=== PATIENT | male | born 1985 | race African-American/Black ===

== ENCOUNTER → 2019-12-17 | Day surgery (SDC) | payer BC ==
[~2019-12-17] MED LIST: FENTANYL CITRATE/PF 100MCG/2 ML INJ ONE; MIDAZOLAM HCL 2 MG/2 ML VIAL ONE; OR PHACO EYE KIT ONE; PREOP PHACO EYE KIT ONE
[2019-12-17 14:15] VITALS: BP 105/72
== END | disposition home or self-care (01) ==
LOC: OR 10:43
PROVIDERS: ATTEND Ophthalmology
DX: H25.042 Posterior subcapsular polar age-related cataract, left eye (principal)
CPT/HCPCS: 66984; J2250; J3010; V2632